=== PATIENT | female | born 1950 | race Caucasian/White ===

== ENCOUNTER 2020-07-04 10:19 | Inpatient (IN) | payer MEDICARE, SELFPAY ==
[2020-07-04] VITALS (15 sets, daily range): BP systolic 139–187; BP diastolic 42–145; PULSE 58–85; RESP 17–32; TEMP 36.2–36.7; O2SAT 94–100; BMI 40.7
--- NOTE | ~2020-07-04 | XR_ITS ---
XR chest 1V portable DATE: 07/04/2020 11:09 INDICATION: Shortness of breath for 2 days TECHNIQUE: Portable AP chest on 07/04/2020 1104 hours COMPARISON: 01/12/2011 portable AP chest at 0650 hours FINDINGS: Cardiomegaly. There is pulmonary vascular congestion and redistribution. Prominence of the minor fissure consistent with subpleural edema. Minimal pleural effusions are suggested. Mild interstitial infiltrates and Jose B-lines in the mid and lower lung zones, likely representing pulmonary edema. Aortic arch calcification. Diffuse osteopenia. IMPRESSION: Congestive heart failure, subpleural and pulmonary interstitial edema Reviewed, dictated and finalized at location A. IMPRESSION: Congestive heart failure, subpleural and pulmonary interstitial roman miller
--- NOTE | 2020-07-04 10:40 | ECG_ITS ---
Measurements Intervals [place] Rate: 66 P: 68 VT: 239 QRS: 29 QRSD: 115 T: 54 QT: 415 QTc: 436 Interpretive Statements SINUS RHYTHM WITH FIRST DEGREE AV BLOCK LOW QRS VOLTAGE IN PRECORDIAL LEADS INTRAVENTRICULAR CONDUCTION DELAY BORDERLINE ST-T WAVE ABNORMALITY- HIGH LATERAL LEADS BASELINE ARTIFACT- I, II, III, AVR, AVL, AVF, V1-V3 ABNORMAL ECG Electronically Signed On 07-04-2020 11:35:05 CDT by Mike Nelson D.O.
[2020-07-04 10:47] LABS: Hematocrit 30.8 % (37.0-47.0); Hemoglobin 9.2 g/dL (12.0-15.0); Mean Corpuscular HGB Conc 29.9 g/dl (32-36); Mean Corpuscular Hemoglobin 27.4 pg (26-34); Mean Corpuscular Volume 91.7 fl (80-100); Mean Platelet Volume 11.3 fl (7.4-10.4); Platelet Count Result 197 k/mm3 (150-375); Red Blood Count 3.36 M/mm3 (4.2-5.4); Red Cell Distribution Width 13.7 % (11.5-14.5); White Blood Count 6.9 K/mm3 (4.5-10.0)
[2020-07-04 10:57] LABS: INR 0.9
[2020-07-04 10:58] LABS: Burr Cells 1+ (NORMAL); Eosinophils Absolute Manual 0.89 K/mm3 (0.02-0.5); Eosinophils Percent Manual 13 % (0-4); Lymphocytes Absolute Manual 2.41 K/mm3 (1.1-4.5); Monocytes Absolute Manual 0.27 K/mm3 (0.1-0.90); Monocytes Percent Manual 4 % (3-9); Neutrophils Percent Manual 48 % (46-73); Partial Thromboplastin Time 29.1 SECONDS (22.3-36.8); Platelet Estimate Adequate (Adequate); Total Cells Counted 100
[2020-07-04 11:10] LABS: NT Pro B Type Natriuretic Pept 3000 PG/ML (5-100); Troponin I < 0.012 ng/mL (0.000-0.034)
[2020-07-04 11:26] LABS: Anion Gap 5 mmol/L (8-16); Blood Urea Nitrogen 28 mg/dL (7-17); Calcium 8.9 mg/dL (8.4-10.2); Carbon Dioxide 24 mmol/L (22-30); Chloride 114 mmol/L (98-107); Estimated CRCL calculation 32 ml/min; Estimated Glomerular Filt Rate 28; Glucose 132 mg/dL (65-105); Sodium 143 mmol/L (137-145)
[2020-07-04 11:31] LABS: Potassium 4.9 mmol/L (3.4-5.0)
--- NOTE | 2020-07-04 11:36 | ED.SOB ---
HPI - SOB/Dyspnea General Chief Complaint: Shortness of Breath/Dyspnea Stated Complaint: SOB Time Seen by Provider: 07/04/20 10:30 Source: patient and family Mode of arrival: ambulatory Limitations: no limitations History of Present Illness HPI Narrative: 70-year-old with a history of hypertension CKD, CHF here with complaints of shortness of breath for past 1 week. Patient states that she was taken off her diuretics as kidney function declined. She denies any chest pain no history of fever or chills has occasional cough which is nonproductive. Patient states that she is unable to lay down flat. She follows with Dr. Chakraborty for her renal issues. MD elicited complaint: shortness of breath Pertinent past history: congestive heart failure Onset (ago): week(s) (1) Exacerbating factors: lying flat and exertion Relieving factors: upright position Known history of: congestive heart failure Treatment prior to arrival: none Related Data Home Medications Medication Instructions Recorded Confirmed allopurinol 100 mg PO DAILY 07/04/20 07/04/20 atorvastatin 80 mg PO DAILY 07/04/20 carvedilol 25 mg PO DAILY 07/04/20 clopidogrel 75 mg PO DAILY 07/04/20 levothyroxine 100 mcg PO DAILY 07/04/20 07/04/20 losartan 50 mg 07/04/20 Allergies Allergy/AdvReac Type Severity Reaction Status Date / Time No Known Allergies Allergy Unknown Verified 07/04/20 10:24 Review of Systems Review of Systems: All systems reviewed & are unremarkable except as noted in HPI and below Constitutional: Constitutional: Reports no additional constitutional complaints Eyes: Eyes: Reports no additional eye complaints ENT: Reports system reviewed and no additional complaints, except as documented Cardiovascular: Cardiovascular: Reports no additional cardiovascular complaints Respiratory: Respiratory: Reports as per HPI Genitourinary: Genitourinary: Reports as per HPI Musculoskeletal: Musculoskeletal: Reports no additional musculoskeletal complaints Integumentary/Breasts: Skin/Breast: Reports system reviewed and no additional complaints, except as docu Neurologic: Reports system reviewed and no additional complaints, except as documented Psychiatric: Psychiatric: Reports no additional psychiatric complaints [facility] Family History Family History Mother Family history of diabetes mellitus in first degree relative Family history of heart disease in male family member before age 55 Sibling Family history of diabetes mellitus in first degree relative Father Family history of lung cancer Social History Social History Smoking status: Never smoker Alcohol intake: current Gender identity (if verbalized by the patient): Female Exam Narrative: Exam Narrative: GENERAL: Well-appearing, well-nourished, and in no acute distress. HEAD: Normocephalic, atraumatic. EYES: PERRLA and EOMI. NECK: Supple. CHEST: Bilateral rales No respiratory distress. HEART: Regular rate and rhythm. No murmur heard. Normal peripheral pulses. ABDOMEN: Soft, nontender, nondistended, normal active bowel sounds. EXTREMITIES: Normal range of motion. Chronic edema. SKIN: Warm, dry, no rash. NEURO: No focal deficits. Alert and oriented x3. PSYCH: Normal mood and affect. Course Course Emergency Course: I have given 60 mg of IV Lasix, discussed labs and chest x-ray findings with the patient and her . Patient agreed for admission. Vital Signs Vital signs: Vital Signs Temperature 36.3 C L 07/04/20 10:23 Pulse Rate 64 07/04/20 10:23 Respiratory Rate 20 07/04/20 10:23 Blood Pressure 175/58 H 07/04/20 10:23 Pulse Oximetry 98 07/04/20 10:23 Temperature 36.3 C L 07/04/20 10:23 Pulse Rate 60 07/04/20 11:22 Respiratory Rate 22 H 07/04/20 11:22 Blood Pressure 187/68 H 07/04/20 11:22 Pulse Oximetry 100 07/04/20 11:22 MDM - SOB/Dyspnea MDM Narrative Medical decision making narra
[2020-07-04] MEDS: FUROSEMIDE INJ 40 MG/4 ML VIAL 60 MG IV PUSH (12:07)
--- NOTE | 2020-07-04 13:00 | ADMGEN ---
This patient, Kriss Painter, was admitted to IMU Room 232-01. Patient/family oriented to hospital policies and general routines including ID bracelet, bed and alarms, visiting hours, pain management, procedures, bathroom and other care routines, personal items, smoking policy, room service/diet, and visiting hours. Information on how to activate the Rapid Response Team has been discussed. Patient/Family are encouraged to report perceived risks to care and to ask questions if they do not understand what they are told or what they should do.
--- NOTE | 2020-07-04 13:25 | ECHO_ITS ---
Patient Info Name: Kriss Painter Age: 70 years : 1950 Gender: Female Ht: 65 in Wt: 238 lbs BSA: 2.28 m2 HR: 60 bpm BP: 155 / 90 mmHg Heart Rhythm: Sinus Rhythm Technical Quality: Fair Exam Date: 07/04/2020 1:44 PM Exam Location: [facility] Patient Status: Inpatient Admit Date: 07/04/2020 Staff Ordering Physician: Leora Rees PA-C Theater Manager: Lisa Greco RDCS Attending Provider: Maggie Gonzales MD Referring Physician: Negrita JIANG; Exam Type: CA echo doppler color flow Study Info Complete two-dimensional, color flow and Doppler transthoracic echocardiogram is performed. Summary 1. Complete two-dimensional, color flow and Doppler transthoracic echocardiogram is performed. 2. Left ventricular chamber dimension is mildly enlarged. 3. Left ventricular systolic function is moderately reduced, estimated at 35-40%. 4. The posterolateral segments are severely hypodynamic. 5. Mild mitral regurgitation. 6. Mild aortic valve sclerosis. 7. Compared to examination from 10 years ago LV systolic function is slightly lower. Left Ventricle Left ventricular chamber dimension is mildly enlarged. Left ventricular systolic function is moderately reduced, estimated at 35-40%. The left ventricular diastolic function is grade II diastolic dysfunction. The posterolateral segments are severely hypodynamic. Right Ventricle Right ventricular chamber dimension is normal. Left Atria Left atrial chamber dimension is mildly enlarged. Right Atria Right atrial chamber dimension is normal. Aortic Valve The aortic valve is trileaflet. There is mild aortic valve sclerosis. Pulmonic Valve The pulmonic valve is not well visualized. Mitral Valve The mitral valve has normal leaflets. There is mild mitral valve regurgitation. Tricuspid Valve The tricuspid valve leaflets are normal. Pericardium/Pleural The pericardium appears normal. Aorta The aortic root size at the sinus of Valsalva is normal. Left Ventricular Outflow Tract Name Value Normal LVOT 2D LVOT Diameter 2.3 cm LVOT Doppler LVOT Peak Gradient 3 mmHg LVOT Mean Gradient 2 mmHg LVOT VTI 31 cm LVOT VTI/AV VTI Ratio 0.9 LVOT Stroke Volume 134 ml LVOT CO 20.2 l/min LVOT CI 8.9 l/min/m2 Pulmonic Valve Name Value Normal PV Doppler PV Peak Gradient 3 mmHg Mitral Valve Name Value Normal MV Doppler
[2020-07-04 14:55] LABS: Alanine Aminotransferase 12 U/L (4-35); Albumin Level 3.8 g/dL (3.5-5.1); Alkaline Phosphatase 137 U/L (38-126); Aspartate Amino Transferase 18 U/L (14-36); Bilirubin,Total 0.3 mg/dL (0.2-1.3); Magnesium 1.7 mg/dL (1.6-2.3)
--- NOTE | 2020-07-04 15:00 | PM.IMHP ---
H&P: HPI History of Present Illness Date/Time: 07/04/20 15:00 Chief Complaint: Shortness of breath. Narrative: This is a 70-year-old female with history of congestive heart failure, coronary artery disease, hypertension, type 2 diabetes mellitus, chronic kidney disease, hypothyroidism, and anemia who presented to the emergency department earlier today via private vehicle from home with complaints of shortness of breath. She was hospitalized at [facility] about 5 weeks ago with ?kidney failure? and at that time her diaphoretic was discontinue. Unfortunately over the past 1 week or so she has noticed increasing lower extremity edema, progressive shortness of breath with nonproductive cough, and orthopnea. Workup in the emergency department showed evidence of CHF exacerbation and she is being admitted in this setting. She has urinated quite a lot since receiving Lasix in the emergency department and is feeling somewhat better. She denies chest pain, pleuritic pain, resting shortness of breath, nausea, vomiting, and sweats. No calf pain or tenderness. No history of DVT. Review of Systems Review of Systems: Narrative: Twelve systems were reviewed with pertinent positives and negatives as per HPI. No fever or sweats. She tells me that she is always cold. No recent cold or flu symptoms. No exposure to those positive for COVID-19 however she states several of her family members have had issues with hayfever the last week or so. Appetite has been good. No nausea, vomiting, or diarrhea. No dysuria or urinary retention. Her diabetes has been much better controlled since she has been ordering food from a company that specializes in those with heart failure and diabetes. Except as documented, all other systems were reviewed and are negative. [facility] Past Medical History Medical History (Updated 07/04/20 @ 21:41 by Leora Rees PA-C) Chronic anemia Chronic kidney disease Stage IV (per patient report). Patient of Dr. Chakraborty. Congestive heart failure Echocardiogram in January 2011 showed reduced LV systolic function with an EF of 40% and grade 4 diastolic dysfunction. Essential hypertension Hyperlipidemia Hypothyroidism Obstructive sleep apnea Noncompliant with treatment. Osteoarthritis Type 2 diabetes mellitus Surgical History Surgical History (Updated 07/04/20 @ 21:41 by Leora Rees PA-C) History of orthopedic surgery History of partial hysterectomy Status post excision of lipoma Family History Family History Mother Family history of diabetes mellitus in first degree relative Family history of heart disease in male family member before age 55 Sibling Family history of diabetes mellitus in first degree relative Father Family history of lung cancer Social History Social History (Updated 07/04/20 @ 21:42 by Leora Rees PA-C) Social History: The patient lives in [place] with her . She is a former smoker. Denies alcohol illicit substance abuse. Her Francois as her surrogate decision maker. Full code. Meds Home Medications and Allergies Home Medications Medication Instructions Recorded Confirmed Type allopurinol 100 mg PO DAILY 07/04/20 07/04/20 History atorvastatin 80 mg PO DAILY 07/04/20 07/04/20 History carvedilol 25 mg PO DAILY 07/04/20 07/04/20 History clopidogrel 75 mg PO DAILY 07/04/20 07/04/20 History insulin degludec [Tresiba 15 unit SUBCUT DAILY 07/04/20 07/04/20 History FlexTouch U-100] levothyroxine 100 mcg PO DAILY 07/04/20 07/04/20 History losartan 50 mg PO DAILY 07/04/20 07/04/20 History Allergies Allergy/AdvReac Type Severity Reaction Status Date / Time adhesive Allergy Rash Verified 07/04/20 15:56 bacitracin Allergy Rash Verified 07/04/20 15:56 [From Neosporin ([id number])] neomycin Allergy Rash Verified 07/04/20 15:56 [From Neosporin ([email or web address]
[2020-07-04 15:07] LABS: Troponin I < 0.012 ng/mL (0.000-0.034)
[2020-07-04 18:05] LABS: Troponin I < 0.012 ng/mL (0.000-0.034)
[2020-07-04 18:53] LABS: Glucose Point of Care 82 (65-105)
[2020-07-04] MEDS: FUROSEMIDE INJ 40 MG/4 ML VIAL 20 MG IV PUSH (20:58)
[2020-07-04 21:15] LABS: Glucose Point of Care 150 (65-105)
[2020-07-05] VITALS (12 sets, daily range): BP systolic 119–166; BP diastolic 36–76; PULSE 56–100; RESP 14–20; TEMP 36.4–37.1; O2SAT 94–97
[2020-07-05 04:48] LABS: Basophils Absolute Auto 0.1 K/mm3 (0.0-0.1); Eosinophils Absolute Auto 0.5 K/mm3 (0-0.3); Eosinophils Percent Auto 6.5 % (0-4.4); Hematocrit 26.6 % (37.0-47.0); Hemoglobin 8.2 g/dL (12.0-15.0); Immature Granulocyte Absolute 0.01 K/mm3 (0.00-0.031); Immature Granulocyte Percent A 0.1 % (0-0.5); Lymphocytes Absolute Auto 3.03 K/mm3 (0.9-3.2); Lymphocytes Percent Auto 38.7 % (18.3-44.2); Mean Corpuscular HGB Conc 30.8 g/dl (32-36); Mean Corpuscular Hemoglobin 27.1 pg (26-34); Mean Corpuscular Volume 87.8 fl (80-100); Mean Platelet Volume 11.2 fl (7.4-10.4); Monocytes Absolute Auto 0.6 K/mm3 (0.1-0.6); Monocytes Percent Auto 7.3 % (2.6-8.5); Neutrophils Absolute Auto 3.6 K/mm3 (1.3-6.7); Neutrophils Percent Auto 46.4 % (45.5-73.1); Platelet Count Result 179 k/mm3 (150-375); Red Blood Count 3.03 M/mm3 (4.2-5.4); Red Cell Distribution Width 13.7 % (11.5-14.5); White Blood Count 7.8 K/mm3 (4.5-10.0)
[2020-07-05 05:08] LABS: Anion Gap 4 mmol/L (8-16); Blood Urea Nitrogen 28 mg/dL (7-17); Calcium 9.1 mg/dL (8.4-10.2); Carbon Dioxide 25 mmol/L (22-30); Chloride 112 mmol/L (98-107); Estimated CRCL calculation 31 ml/min; Estimated Glomerular Filt Rate 26; Glucose 107 mg/dL (65-105); Magnesium 1.5 mg/dL (1.6-2.3); Potassium 4.1 mmol/L (3.4-5.0); Sodium 141 mmol/L (137-145)
[2020-07-05] MEDS: LEVOTHYROXINE SODIUM 100 MCG TABLET PO (05:48)
[2020-07-05 08:03] LABS: Glucose Point of Care 127 (65-105)
[2020-07-05] MEDS: ASPIRIN 81 MG CHEWABLE TABLET PO (09:04)
[2020-07-05] MEDS: LOSARTAN POTASSIUM 50 MG TABLET PO (09:05)
[2020-07-05] MEDS: carvediloL 25 MG TABLET PO ×2 (09:05→20:57)
[2020-07-05] MEDS: allopurinoL 100 MG TABLET PO (09:05)
[2020-07-05] MEDS: ATORVASTATIN 40 MG TABLET 80 MG PO (09:05)
[2020-07-05] MEDS: CLOPIDOGREL BISULFATE 75 MG TABLET PO (09:05)
[2020-07-05] MEDS: ENOXAPARIN 40 MG/0.4 ML SYRINGE SUB-Q (09:06)
[2020-07-05] MEDS: FUROSEMIDE INJ 40 MG/4 ML VIAL 20 MG IV PUSH ×2 (09:06→20:58)
[2020-07-05] MEDS: MAGNESIUM SULF 1 GM/D5W 100 ML 1 GM/100 ML BAG IVPB (09:07)
--- NOTE | 2020-07-05 10:11 | PM.IMPN ---
Progress Note: A&P Assessment and Plan (1) Acute exacerbation of congestive heart failure: Code(s): I50.9 - Heart failure, unspecified Status: Acute Assessment and Plan: Patient taken off diuretics about 5 weeks ago at prior hospitalization at outside facility for kidney injury. She subsequently developed volume overload. CXR demonstrated findings of pulmonary edema. She is maintaining adequate oxygenation on room air. Continue IV diuresis. Lasix 20 mg IV b.i.d. with careful monitoring of kidney function Echocardiogram has been performed. Awaiting results. Heart healthy diet Monitor intake and output. Weigh daily. (2) Chronic kidney disease: Code(s): N18.9 - Chronic kidney disease, unspecified Status: Chronic Assessment and Plan: Patient of Dr. Chakraborty. Only prior labs available are from several years ago, therefore difficult to establish baseline. Creatinine 1.8 at time of presentation and remaining relatively stable with diuresis. Records requested to help establish baseline renal function. Monitor renal function closely while diuresing. (3) Type 2 diabetes mellitus: Code(s): E11.9 - Type 2 diabetes mellitus without complications Status: Chronic Assessment and Plan: Patient reports pretty good control of her diabetes recently. Her A1c is 6.0. Blood sugars reviewed and are fairly well controlled today. Continue basal insulin. Metformin recently discontinued due to renal function. Sliding scale insulin, Accu-Cheks, and hypoglycemic protocol. (4) Essential hypertension: Code(s): I10 - Essential (primary) hypertension Status: Chronic Assessment and Plan: Blood pressures reviewed and are elevated above target as high as 187/68. Seems to be improving today with systolic BP ranging between 120s-160s. Anticipate further improvement in BP with diuresis Continue carvedilol and losartan. Monitor BP trends closely. Adjust medication regimen as needed for tight control (5) Chronic anemia: Code(s): D64.9 - Anemia, unspecified Status: Chronic Assessment and Plan: Hemoglobin was 9.2 at presentation, which is consistent with review of previous labs from several years ago. One point decline in hemoglobin overnight which is likely dilutional. Vital signs remaining stable. No evidence to suggest blood loss. Records requested from primary care provider to help establish baseline. No workup needed at this time due to longstanding chronicity. Monitor H&H closely while inpatient. (6) Hypothyroidism: Code(s): E03.9 - Hypothyroidism, unspecified Status: Chronic Assessment and Plan: TSH is within normal limits. Continue levothyroxine (7) Hyperlipidemia: Code(s): E78.5 - Hyperlipidemia, unspecified Status: Chronic Assessment and Plan: LFTs reviewed and appropriate for continuation of statin therapy. Additional Plan Patient is hemodynamically stable. Will downgrade from IMU to med/surg floor. Subjective Date/time seen: 07/05/20 10:11 Interval history: Date of service: 07/05/2020 Kriss Painter is a 70-year-old female with history of CHF, CAD, hypertension, insulin-dependent type 2 diabetes mellitus, CKD, hypothyroidism, and anemia who is seen in follow-up for CHF exacerbation. She states that she is feeling much better today. She states that her lower extremity edema has improved significantly. Her shortness of breath is also much improved. Denies ROBERTS. She has occasional nonproductive cough but this is also improving. She previously felt that she was wheezing but no longer endorses wheezing. She denies orthopnea or PND. She denies nausea, vomiting, fever, chills, dizziness, or lightheadedness. Her appetite has been good. She denies urinary symptoms. She denies abdominal pain, cramping, or bloating. Review of Systems Review of Systems: Phil
[2020-07-05 12:01] LABS: Glucose Point of Care 199 (65-105)
[2020-07-05 16:15] LABS: Glucose Point of Care 130 (65-105)
[2020-07-05 20:27] LABS: Glucose Point of Care 141 (65-105)
[2020-07-06] VITALS (8 sets, daily range): BP systolic 141–165; BP diastolic 55–71; PULSE 58–75; RESP 18–20; TEMP 36.1–36.5; O2SAT 92–100
[2020-07-06 05:34] LABS: Hematocrit 26.9 % (37.0-47.0); Hemoglobin 8.2 g/dL (12.0-15.0)
[2020-07-06 05:47] LABS: Potassium 4.3 mmol/L (3.4-5.0)
[2020-07-06 05:56] LABS: Anion Gap 4 mmol/L (8-16); Blood Urea Nitrogen 30 mg/dL (7-17); Calcium 8.3 mg/dL (8.4-10.2); Carbon Dioxide 27 mmol/L (22-30); Chloride 108 mmol/L (98-107); Estimated CRCL calculation 29 ml/min; Estimated Glomerular Filt Rate 25; Glucose 126 mg/dL (65-105); Magnesium 1.5 mg/dL (1.6-2.3); Sodium 139 mmol/L (137-145)
[2020-07-06] MEDS: LEVOTHYROXINE SODIUM 100 MCG TABLET PO (06:11)
[2020-07-06] MEDS: ASPIRIN 81 MG CHEWABLE TABLET PO (09:51)
[2020-07-06] MEDS: allopurinoL 100 MG TABLET PO (09:51)
[2020-07-06] MEDS: carvediloL 25 MG TABLET PO ×2 (09:51→21:11)
[2020-07-06] MEDS: ENOXAPARIN 40 MG/0.4 ML SYRINGE SUB-Q (09:51)
[2020-07-06] MEDS: CLOPIDOGREL BISULFATE 75 MG TABLET PO (09:51)
[2020-07-06] MEDS: FUROSEMIDE INJ 40 MG/4 ML VIAL 20 MG IV PUSH ×2 (09:51→21:11)
[2020-07-06] MEDS: LOSARTAN POTASSIUM 50 MG TABLET PO (09:52)
[2020-07-06] MEDS: ATORVASTATIN 40 MG TABLET 80 MG PO (09:52)
[2020-07-06] MEDS: MAGNESIUM SULF 2 GM/WATER 50ML 2 GM/50 ML BAG IVPB (10:03)
[2020-07-06 10:19] LABS: Glucose Point of Care 134 (65-105)
--- NOTE | 2020-07-06 10:43 | PM.IMPN ---
Progress Note: A&P Assessment and Plan (1) Acute exacerbation of congestive heart failure: Code(s): I50.9 - Heart failure, unspecified Status: Acute Assessment and Plan: Patient taken off diuretics about 5 weeks ago at prior hospitalization at outside facility for kidney injury. She subsequently developed volume overload. CXR demonstrated findings of pulmonary edema. She is maintaining adequate oxygenation on room air. Echo showed moderately reduced EF of 30-40% as well as grade II diastolic dysfunction. Slowly improving but no significant diuresis based on measured output. . Continue IV diuresis with lasix 20 mg IV b.i.d. with careful monitoring of kidney function. Plan to transition to PO Lasix 40 mg tomorrow. Heart healthy diet Monitor intake and output. Weigh daily. (2) Chronic kidney disease: Code(s): N18.9 - Chronic kidney disease, unspecified Status: Chronic Assessment and Plan: Patient of Dr. Chakraborty. Spoke with PCP office on 07/06 and received lab results from 06/25/20 which showed BUN 38 and Cr 1.9. Creatinine 1.8 at time of presentation and remaining relatively stable with diuresis; she is consistent with her baseline. Monitor renal function closely while diuresing. I spoke with Dr. Chakraborty's office. Will plan to discharge on Lasix with careful monitoring as outpatient. She has follow up scheduled for 07/14/20. (3) Type 2 diabetes mellitus: Code(s): E11.9 - Type 2 diabetes mellitus without complications Status: Chronic Assessment and Plan: A1c is 6.0. Blood sugars reviewed and are fairly well controlled today. Continue basal insulin. Metformin recently discontinued due to renal function. Sliding scale insulin, Accu-Cheks, and hypoglycemic protocol. (4) Essential hypertension: Code(s): I10 - Essential (primary) hypertension Status: Chronic Assessment and Plan: Blood pressures reviewed and were initially elevated above target as high as 187/68. Seems to be improving with diuresis. Last BP 151/62. Anticipate further improvement in BP with continued diuresis Continue carvedilol and losartan. Monitor BP trends closely. Adjust medication regimen as needed for tight control (5) Chronic anemia: Code(s): D64.9 - Anemia, unspecified Status: Chronic Assessment and Plan: Hemoglobin was 9.2 at presentation, which is consistent with review of previous labs from several years ago. H&H is remaining stable. Vital signs are stable. No evidence to suggest blood loss. Records requested from primary care provider to help establish baseline -results pending. No workup needed at this time due to longstanding chronicity. Monitor H&H closely while inpatient. (6) Hypothyroidism: Code(s): E03.9 - Hypothyroidism, unspecified Status: Chronic Assessment and Plan: TSH is within normal limits. Continue levothyroxine (7) Hyperlipidemia: Code(s): E78.5 - Hyperlipidemia, unspecified Status: Chronic Assessment and Plan: LFTs reviewed and appropriate for continuation of statin therapy. Subjective Date/time seen: 07/06/20 10:43 Interval history: Date of service: 07/06/2020 Kriss Painter is a 70-year-old female with history of CHF, CAD, hypertension, insulin-dependent type 2 diabetes mellitus, CKD, hypothyroidism, and anemia who is seen in follow-up for CHF exacerbation. She feels her shortness of breath has improved but is still having some coughing. She cannot indicate if she is having ROBERTS as she reports she has not gotten up to ambulate. Reports lower extremities are about the same today. Denies nausea, vomiting, fever, chills, dizziness, lightheadedness. She has been eating well. No additional concerns. Review of Systems Review of Systems: All systems reviewed & are unremarkable except as noted in HPI and below Exam Narrative: Exam Narrative: Mabel
[2020-07-06 13:26] LABS: Glucose Point of Care 160 (65-105)
[2020-07-06 18:12] LABS: Glucose Point of Care 140 (65-105)
--- NOTE | 2020-07-06 20:34 | PC.NURSE ---
This patient, Kriss Painter, was transferred to [ ] on 07/06/20 at 2034. Personal belongings sent with patient. Report given to [ ]. Appropriate documentation sent with patient. Report given to Lu PHAM pt transferred at 2030
[2020-07-07 05:39] LABS: Hematocrit 28.6 % (37.0-47.0); Hemoglobin 8.8 g/dL (12.0-15.0)
[2020-07-07 05:52] LABS: Anion Gap 4 mmol/L (8-16); Blood Urea Nitrogen 38 mg/dL (7-17); Calcium 8.7 mg/dL (8.4-10.2); Carbon Dioxide 27 mmol/L (22-30); Chloride 108 mmol/L (98-107); Estimated CRCL calculation 29 ml/min; Estimated Glomerular Filt Rate 25; Glucose 132 mg/dL (65-105); Magnesium 1.8 mg/dL (1.6-2.3); Potassium 4.5 mmol/L (3.4-5.0); Sodium 139 mmol/L (137-145)
[2020-07-07] MEDS: LEVOTHYROXINE SODIUM 100 MCG TABLET PO (06:07)
[2020-07-07 07:02] VITALS: BP 123/51; PULSE 68; RESP 18; TEMP 36.2; O2SAT 96
[2020-07-07 07:34] LABS: Glucose Point of Care 117 (65-105)
[2020-07-07 08:00] VITALS: BP 145/62; PULSE 63; RESP 22; TEMP 36.2; O2SAT 97
[2020-07-07] MEDS: ASPIRIN 81 MG CHEWABLE TABLET PO (08:44)
[2020-07-07] MEDS: allopurinoL 100 MG TABLET PO (08:44)
[2020-07-07] MEDS: ATORVASTATIN 40 MG TABLET 80 MG PO (08:46)
[2020-07-07 08:47] VITALS: PULSE 63
[2020-07-07] MEDS: carvediloL 25 MG TABLET PO ×2 (08:47→22:00)
[2020-07-07] MEDS: CLOPIDOGREL BISULFATE 75 MG TABLET PO (08:48)
[2020-07-07] MEDS: ENOXAPARIN 40 MG/0.4 ML SYRINGE SUB-Q (08:49)
[2020-07-07] MEDS: FUROSEMIDE INJ 40 MG/4 ML VIAL 20 MG IV PUSH (08:51)
[2020-07-07] MEDS: LOSARTAN POTASSIUM 50 MG TABLET PO (08:52)
[2020-07-07 11:37] LABS: Glucose Point of Care 148 (65-105)
--- NOTE | 2020-07-07 13:58 | PHAR ---
The patient's home med of Insulin Degludec [Tresiba Flextouch U-100] 100 unit/mL (3 mL) insulin pen has been verified.
--- NOTE | 2020-07-07 14:34 | PM.IMPN ---
Progress Note: A&P Assessment and Plan (1) Acute exacerbation of congestive heart failure: Code(s): I50.9 - Heart failure, unspecified Status: Acute Assessment and Plan: Patient taken off diuretics about 5 weeks ago at prior hospitalization at outside facility for kidney injury. She subsequently developed volume overload. CXR demonstrated findings of pulmonary edema. She is maintaining adequate oxygenation on room air. Echo showed moderately reduced EF of 30-40% as well as grade II diastolic dysfunction. She notes significant improvement overall with near resolution of dyspnea and leg swelling. Stop IV diuresis and start furosemide 40 mg tomorrow Heart healthy diet Monitor intake and output. Weigh daily. I called to discuss the patient's care and echocardiogram findings with her primary customer advisor, Dr. Zuluaga, who will see her outpatient for Lexiscan stress test given hypodynamic posterolateral segments and moderately reduced EF. She will need to see Dr. Zuluaga in 1 week for follow-up. (2) Chronic kidney disease: Code(s): N18.9 - Chronic kidney disease, unspecified Status: Chronic Assessment and Plan: Patient of Dr. Chakraborty. Prior provider spoke with PCP office on 07/06 and received lab results from 06/25/20 which showed BUN 38 and Cr 1.9. Creatinine 1.8 at time of presentation and remaining relatively stable with diuresis; she is consistent with her baseline. Monitor renal function closely while diuresing. Prior provider spoke with Dr. Chakraborty's office. Will plan to discharge on Lasix with careful monitoring as outpatient. She has follow up scheduled for 07/14/20. (3) Type 2 diabetes mellitus: Code(s): E11.9 - Type 2 diabetes mellitus without complications Status: Chronic Assessment and Plan: A1c is 6.0. Blood sugars reviewed and are at target. Continue basal insulin. Metformin recently discontinued due to renal function. Sliding scale insulin, Accu-Cheks, and hypoglycemic protocol. (4) Essential hypertension: Code(s): I10 - Essential (primary) hypertension Status: Chronic Assessment and Plan: Blood pressures reviewed and were initially elevated above target as high as 187/68. Blood pressures have improved significantly with diuresis. Most recent 145/62. Anticipate further improvement in BP with continued diuresis Continue carvedilol and losartan. Monitor BP trends closely. Adjust medication regimen as needed for tight control (5) Chronic anemia: Code(s): D64.9 - Anemia, unspecified Status: Chronic Assessment and Plan: Hemoglobin was 9.2 at presentation, which is consistent with review of previous labs from several years ago. H&H is remaining stable. Vital signs are stable. No evidence to suggest blood loss. Records requested from primary care provider to help establish baseline -results pending. No workup needed at this time due to longstanding chronicity. Monitor H&H closely while inpatient. (6) Hypothyroidism: Code(s): E03.9 - Hypothyroidism, unspecified Status: Chronic Assessment and Plan: TSH is within normal limits. Continue levothyroxine (7) Hyperlipidemia: Code(s): E78.5 - Hyperlipidemia, unspecified Status: Chronic Assessment and Plan: LFTs reviewed and appropriate for continuation of statin therapy. Subjective Date/time seen: 07/07/20 14:34 Mrs. Painter is a 70-year-old female with history of HFrEF, CAD, hypertension, insulin-dependent type 2 diabetes mellitus, CKD, hypothyroidism, and anemia who is seen in follow-up for CHF exacerbation. She is doing very well today and eager to get home. She notes that her dyspnea is much better and she has been up walking around in the room with limited dyspnea on exertion. Her daughter is present at the bedside and also feels that she is much better. She denies chest pain and palpitations. She den
--- NOTE | 2020-07-07 15:21 | PC.NURSE ---
On 07/07/20, the student, [GUSTAVO ROBERTS ], provided care and completed [facility] documentation on this patient. I have reviewed the student's documentation and agree with the findings.
--- NOTE | 2020-07-07 17:23 | PC.NURSE ---
Patient refused her Tresiba this evening, stating she only takes that when her blood glucose if running higher and it is currently in the 140s. Called Dr. Dean - voice message received. Attempted to leave message but voice mail is full and cannot receive messages. Will try again in awhile.
[2020-07-07 17:43] LABS: Glucose Point of Care 145 (65-105)
[2020-07-07 18:43] VITALS: BP 149/62; PULSE 65; RESP 18; TEMP 36.2; O2SAT 97
[2020-07-07 22:00] VITALS: BP 151/57; PULSE 65; PULSE 70; RESP 18; TEMP 36.7; O2SAT 96
[2020-07-07 22:15] LABS: Glucose Point of Care 168 (65-105)
[2020-07-08 06:00] VITALS: BP 141/52; PULSE 65; RESP 18; TEMP 36.4; O2SAT 96
[2020-07-08 06:05] LABS: Anion Gap 3 mmol/L (8-16); Blood Urea Nitrogen 43 mg/dL (7-17); Calcium 8.5 mg/dL (8.4-10.2); Carbon Dioxide 30 mmol/L (22-30); Chloride 105 mmol/L (98-107); Estimated CRCL calculation 28 ml/min; Estimated Glomerular Filt Rate 23; Glucose 141 mg/dL (65-105); Magnesium 1.7 mg/dL (1.6-2.3); Potassium 4.6 mmol/L (3.4-5.0); Sodium 138 mmol/L (137-145)
[2020-07-08] MEDS: LEVOTHYROXINE SODIUM 100 MCG TABLET PO (06:07)
[2020-07-08 08:17] LABS: Glucose Point of Care 126 (65-105)
[2020-07-08] MEDS: allopurinoL 100 MG TABLET PO (09:06)
[2020-07-08] MEDS: CLOPIDOGREL BISULFATE 75 MG TABLET PO (09:06)
[2020-07-08] MEDS: ASPIRIN 81 MG CHEWABLE TABLET PO (09:06)
[2020-07-08] MEDS: ATORVASTATIN 40 MG TABLET 80 MG PO (09:06)
[2020-07-08 09:07] VITALS: PULSE 68
[2020-07-08] MEDS: LOSARTAN POTASSIUM 50 MG TABLET PO (09:07)
[2020-07-08] MEDS: carvediloL 25 MG TABLET PO (09:07)
[2020-07-08 09:08] VITALS: RESP 18; O2SAT 95
[2020-07-08] MEDS: FUROSEMIDE 40 MG TABLET PO (09:08)
[2020-07-08] MEDS: ENOXAPARIN 40 MG/0.4 ML SYRINGE SUB-Q (09:08)
--- NOTE | 2020-07-08 09:19 | PM.DS ---
DS: Admitting Diagnosis Admitting Diagnosis Admitting Diagnosis: Congestive heart failure exacerbation DS: Discharge Diagnosis Discharge Diagnosis (1) Acute exacerbation of congestive heart failure: Code(s): I50.9 - Heart failure, unspecified Status: Acute Assessment and Plan: Discharge Summary (Date of service 07/08/20): Mrs. Painter is a 70 y.o. female with PMH significant for HFrEF (primary attenuator Dr. Zuluaga at [place]), CAD, hypertension, insulin-dependent type 2 diabetes mellitus, CKD, hypothyroidism, and anemia who presented to the emergency department for the evaluation of shortness of breath. She reported that she was recently hospitalized at [facility] 5 weeks prior for kidney failure and her lasix was discontinued at that time. Over the past week, she noticed increased lower extremity edema, progressive dyspnea with nonproductive cough, and orthopnea. Blood pressure was elevated on arrival at 175/58 and vitals otherwise stable. Labs were notable for normocytic anemia with Hb 9.2 and Hct 30.8. Cr elevated at 1.8 and BUN 28. BNP 3000. CXR demonstrated findings of pulmonary edema. She was treated with IV lasix and admitted to the hospitalist service. Echocardiogram was performed 07/04/20 and demonstrated mildly enlarged left ventricular chamber dimension, moderately reduced EF of 30-40% as well as grade II diastolic dysfunction, hypodynamic posterolateral segments, mild mitral regurgitation, and mild aortic valve sclerosis. She improved significantly with IV diuresis with near resolution of dyspnea and swelling. She remained on room air with no further distress. She felt much better and requested discharge. Her primary attenuator is Dr. Zuluaga at [facility]. I called to discuss the patient's care and echocardiogram findings with her primary attenuator, Dr. Zuluaga, who will see her outpatient for Lexiscan stress test given hypodynamic posterolateral segments and moderately reduced EF. She will need to see Dr. Zuluaga in 1 week for follow-up and I discussed this with the patient and she verbalized understanding. She had no chest pain but I advised that she seek emergent care should she develop any chest pain. She was discharged on 40mg of lasix daily and she will need close monitoring of her renal function with BMP 07/13/20 and was advised to monitor weight and blood pressure daily. She was discharged in hemodynamically stable condition on the morning of 07/08/20. Worrisome signs and symptoms which would warrant return to the emergency department were discussed and she verbalized understanding. (2) Chronic kidney disease: Code(s): N18.9 - Chronic kidney disease, unspecified Status: Chronic Assessment and Plan: She is established with Dr. Chakraborty. The previous provider spoke with her PCP's office on 07/06 and received lab results from 06/25/20 which showed BUN 38 and Cr 1.9. Creatinine 1.8 at time of presentation and remained relatively stable with diuresis. The prior provider discussed the plan of care with Dr. Chakraborty and they agreed for her to continue lasix at discharge with close monitoring and follow-up BMP 07/13/20 and follow-up appointment 07/14/[address] Chakraborty. I also discussed the plan of care with Dr. Zuluaga, her attenuator. (3) Type 2 diabetes mellitus: Code(s): E11.9 - Type 2 diabetes mellitus without complications Status: Chronic Assessment and Plan: A1c is 6.0. Blood sugars were reviewed and at target. Her basal insulin was continued. (4) Essential hypertension: Code(s): I10 - Essential (primary) hypertension Status: Chronic Assessment and Plan: Blood pressures reviewed and were initially elevated above target. Blood pressures improved significantly with diuresis. Carvedilol and losartan were continued. (5) Chronic anemia: Code(s): D64.9 - Anemia, unspecified Status: Chronic Assessment and Plan
== END 2020-07-08 11:05 | disposition home or self-care (01) | DRG 291 ==
LOC: ANHED 11:53 → ANHIMU 14:45 → ANH2MED 07-06 22:01 → ANHIMU 07-13 09:46 → ANH2MED 07-13 09:46
PROVIDERS: Physician Assistant; Admitting Provider Family Medicine; Emergency Provider Family Medicine; PCP Internal Medicine; Visit Provider Physician Assistant
DX: I13.0 Hypertensive heart and chronic kidney disease with heart failure and stage 1 through stage 4 chronic kidney disease, or unspecified chronic kidney disease (principal); I50.23 Acute on chronic systolic (congestive) heart failure; N18.4 Chronic kidney disease, stage 4 (severe); E11.22 Type 2 diabetes mellitus with diabetic chronic kidney disease; D64.9 Anemia, unspecified; E03.9 Hypothyroidism, unspecified; E78.5 Hyperlipidemia, unspecified; G47.33 Obstructive sleep apnea (adult) (pediatric); E83.42 Hypomagnesemia; Z91.19 Patient's noncompliance with other medical treatment and regimen; Z79.4 Long term (current) use of insulin; Z79.899 Other long term (current) drug therapy
CPT/HCPCS: 36415; 71045; 80048; 80076; 83036; 83735; 83880; 84443; 84484; 85014; 85018; 85025; 85610; 85730; 93005; 93306; 96372; 96374; 96375; 96376; 99285; A9270; G0378; J1650; J1940; J3475

== ENCOUNTER 2022-08-05 19:12 | Emergency (ER) | payer MEDICARE, SELFPAY ==
[2022-08-05 19:24] VITALS: BP 148/55; PULSE 72; RESP 16; TEMP 36.6; O2SAT 98
--- NOTE | 2022-08-05 19:54 | ED.URI ---
HPI - URI/Sore Throat General Chief Complaint: Upper Respiratory Infection Stated Complaint: Sore Throat Time Seen by Provider: 08/05/22 19:54 Source: patient Mode of arrival: ambulatory Limitations: no limitations History of Present Illness HPI Narrative: 72-year-old female with hx DM, CHF, CKD, HTN, presented for multiple complaints. She reports sore throat for about 2 days. Reports concern for strep as she takes care of with cancer going through chemo. Also reports right lower leg wounds with redness and warmth. States she had stents placed to the right lower leg about 2 weeks ago. Continues to have swelling. Endorses oozing clearliquid from the wounds. Denies numbness, tingling, weakness of the extremity. Patient also reports 2 brief episodes of dizziness today upon further questioning. States they were fleeting. Denies falling, or associated cp, palpitations, sob, nausea, vomiting or diaphoresis. Taking plavix. Related Data Home Medications Medication Instructions Recorded Confirmed allopurinol 100 mg tablet 100 mg PO DAILY 07/04/20 07/04/20 atorvastatin 80 mg tablet 80 mg PO DAILY 07/04/20 07/04/20 carvedilol 25 mg tablet 25 mg PO BID 07/04/20 07/05/20 clopidogrel 75 mg tablet 75 mg PO DAILY 07/04/20 07/04/20 insulin degludec 100 unit/mL (3 15 unit subcut DAILY 07/04/20 07/04/20 mL) subcutaneous pen (Tresiba FlexTouch U-100 insulin) levothyroxine 100 mcg tablet 100 mcg PO DAILY 07/04/20 07/04/20 losartan 50 mg tablet 50 mg PO DAILY 07/04/20 07/04/20 cholecalciferol (vitamin D3) 08/05/22 dapagliflozin 5 mg tablet (Farxiga) mg 08/05/22 Allergies Allergy/AdvReac Type Severity Reaction Status Date / Time adhesive Allergy Rash Verified 08/05/22 19:33 bacitracin Allergy Rash Verified 08/05/22 19:33 [From Neosporin ([id number])] neomycin Allergy Rash Verified 08/05/22 19:33 [From Neosporin ([id number])] polymyxin B Allergy Rash Verified 08/05/22 19:33 [From Neosporin ([id number])] Review of Systems Review of Systems: CONSTITUTIONAL: Denies body aches, fever, chills, or sweats. EYES: Denies visual changes, redness, or discharge. ENT: Report sore throat denies rhinorrhea, congestion, or otalgia. CARDIOVASCULAR: Reports bilateral lower extremity edema, denies chest pain, palpitations RESPIRATORY: Denies cough or dyspnea. GASTROINTESTINAL: Denies abdominal pain, nausea, vomiting, or diarrhea. GENITOURINARY: Denies dysuria or hematuria. SKIN: Reports leg wounds denies rash, itching MUSCULOSKELETAL: Denies back pain, joint pain, or myalgia. NEUROLOGIC: Reports dizziness denies headache, numbness, tingling, or weakness. All systems reviewed & are unremarkable except as noted in HPI and below PMFSH Past Medical History Medical History Chronic anemia Chronic kidney disease Stage IV (per patient report). Patient of Dr. Chakraborty. Congestive heart failure Echocardiogram in January 2011 showed reduced LV systolic function with an EF of 40% and grade 4 diastolic dysfunction. Essential hypertension Hyperlipidemia Hypothyroidism Obstructive sleep apnea Noncompliant with treatment. Osteoarthritis Type 2 diabetes mellitus Surgical History Surgical History History of orthopedic surgery History of partial hysterectomy Status post excision of lipoma Family History Family History Mother Family history of diabetes mellitus in first degree relative Family history of heart disease in male family member before age 55 Sibling Family history of diabetes mellitus in first degree relative Father Family history of lung cancer Social History Social History Social History: The patient lives in [place] with her . 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
== END 2022-08-05 20:36 | disposition home or self-care (01) ==
PROVIDERS: Emergency Provider Nurse Practitioner Family; PCP Internal Medicine
DX: S81.801A Unspecified open wound, right lower leg, initial encounter (principal); X58.XXXA Exposure to other specified factors, initial encounter; R42 Dizziness and giddiness; I13.2 Hypertensive heart and chronic kidney disease with heart failure and with stage 5 chronic kidney disease, or end stage renal disease; E11.22 Type 2 diabetes mellitus with diabetic chronic kidney disease; N18.5 Chronic kidney disease, stage 5; I50.9 Heart failure, unspecified; Z79.4 Long term (current) use of insulin; E78.5 Hyperlipidemia, unspecified; E03.9 Hypothyroidism, unspecified; M19.90 Unspecified osteoarthritis, unspecified site; G47.33 Obstructive sleep apnea (adult) (pediatric); Z91.199 Patient's noncompliance with other medical treatment and regimen due to unspecified reason
CPT/HCPCS: 87081; 87880; 99213; G0463